=== PATIENT | female | born 1980 | race Caucasian/White ===

== ENCOUNTER 2023-06-23 08:23 | Outpatient (CLI) | payer OTHER, SELFPAY ==
--- NOTE | 2023-06-23 08:45 | CRLHL7_ITS ---
For Patients: As a result of the Century Cures Act, medical imaging exams and procedure reports are released immediately into your electronic medical record. You may view this report before your referring provider. If you have questions, please contact your health care provider. BILATERAL SCREENING MAMMOGRAM WITH COMPUTER-AIDED DETECTION AND TOMOSYNTHESIS TECHNIQUE: CC and MLO views were obtained. These mammographic images have been obtained using full-field digital technique. These mammographic images were interpreted with the benefit of computer-aided detection. Breast Tomosynthesis was used in this interpretation. COMPARISON FILM: Baseline. FINDINGS: There are scattered areas of fibroglandular density IMPRESSION: There is no radiographic evidence for malignancy. ASSESSMENT: BI-RADS Category 1: Negative RECOMMENDATION: Routine screening mammogram in 1 year. A lay language report of this examination will be provided to the patient. Peggy Rodriguez M.D. Diagnostic/Breast Radiologist [email or web address] JULIA/Dictated by: Peggy Rodriguez MD @ 06/24/2023 11:25:00 AM (Electronically Signed)
== END 2023-06-23 08:24 | disposition home or self-care (01) ==
LOC: MAMMO 08:24
PROVIDERS: Visit Provider Obstetrics & Gynecology
DX: Z12.31 Encounter for screening mammogram for malignant neoplasm of breast (principal)
CPT/HCPCS: 77063; 77067; 80061; 84443

== ENCOUNTER 2024-02-01 07:59 | Outpatient (CLI) | payer OTHER, SELFPAY ==
--- NOTE | 2024-02-01 08:15 | MR_ITS ---
[address] [address] Phone:?[phone] Fax:?[phone] Referring Physician Information: Luiz Fraga M.D. [id number] [facility] [address] Phone:?[phone] Fax:?[phone] Patient:Linda Estrada D.O.B:?1980 Sex:?Female Phone:?[phone] [facility] MRN:?[id number] Exam Date:?02/01/2024 EXAM: MRI of the LEFT SHOULDER WITHOUT CONTRAST CLINICAL HISTORY: Left shoulder pain. Evaluate for rotator cuff tear. COMPARISONS: Plain radiographs 01/21/2024. TECHNICAL: MRI sequences of the left shoulder: Axials: PD, T2 Coronals: PD, STIR, T2 Sagittals: PD, T2 SEDATION: None CONTRAST: None FINDINGS: Bones: No fracture or suspicious bone marrow signal abnormality. Coracoacromial arch: Acromion: No os acromiale. Type I-II acromion. Acromiohumeral space: The bony distance is unremarkable. Acromioclavicular joint: Mild degenerative changes. Coracoclavicular ligament: The coracoclavicular ligament is intact. Rotator cuff muscles/tendons: Supraspinatus: 4 x 4 mm concealed slitlike intrasubstance tear within the anterior portion of the supraspinatus tendon insertional footprint with 1 mm of retraction of torn tendon fibers from the cortical insertional surface best seen on sagittal series 8 image 6 and coronal series 6 images 8 and 9. No muscular atrophy. Infraspinatus: The infraspinatus tendon and muscle are intact. Teres minor: The teres minor tendon and muscle are intact. Subscapularis: The subscapularis tendon and muscle are intact. Labrum and glenohumeral joint: No evidence of labral tear although evaluation is suboptimal because of nonarthrogram technique. Physiologic amount of joint fluid. No discrete chondral defect or subchondral bone marrow edema/cystic change is seen. No convincing evidence of capsular edema or thickening although evaluation is suboptimal because of lack of joint distention. Proximal biceps tendon, long head and short heads: There is mild tendinopathy within the intra-articular portion of the long head of the biceps tendon. The short head is intact. Bursae: Subacromial/subdeltoid: Mild bursitis. Subcoracoid: No convincing subcoracoid bursal thickening/bursitis. IMPRESSION: 1. 4 x 4 mm concealed slitlike intrasubstance tear within the anterior portion of the supraspinatus tendon insertional footprint with 1 mm of retraction of torn tendon fibers from the cortical insertional surface. 2. No articular or bursal surfacing rotator cuff tendon tear. No rotator cuff muscular atrophy. 3. Mild tendinopathy within the intra-articular portion of the long head of the biceps tendon. 4. Mild subacromial/subdeltoid bursitis. 5. No evidence of labral tear on this nonarthrogram study. RCB Electronically signed on 02/01/2024 2:54:00 PM by Rom Ledesma M.D.
== END 2024-02-01 08:00 | disposition home or self-care (01) ==
LOC: MRI 08:00
PROVIDERS: Visit Provider Orthopaedic Surgery
DX: M25.512 Pain in left shoulder (principal); M75.102 Unspecified rotator cuff tear or rupture of left shoulder, not specified as traumatic; M75.52 Bursitis of left shoulder
CPT/HCPCS: 73221

== ENCOUNTER 2024-05-12 07:30 | Outpatient (RCR) | payer OTHER, SELFPAY | END 2024-07-28 14:10 | disposition home or self-care (01) | PROVIDERS: Visit Provider Orthopaedic Surgery | DX: S46.012D Strain of muscle(s) and tendon(s) of the rotator cuff of left shoulder, subsequent encounter (principal); M25.512 Pain in left shoulder; R53.1 Weakness; Z51.89 Encounter for other specified aftercare | CPT/HCPCS: 97035; 97110; 97140; 97161 ==

== ENCOUNTER 2024-12-06 13:41 | Outpatient (CLI) | payer OTHER, SELFPAY | END 2024-12-06 13:42 | disposition home or self-care (01) | LOC: NFLDREF 12-09 02:25 | PROVIDERS: PCP Nurse Practitioner Family; Visit Provider Nurse Practitioner Family | DX: Z00.00 Encounter for general adult medical examination without abnormal findings (principal); E66.812 Obesity, class 2; Z68.37 Body mass index [BMI] 37.0-37.9, adult; N89.8 Other specified noninflammatory disorders of vagina; Z13.6 Encounter for screening for cardiovascular disorders | CPT/HCPCS: 80061; 82947; 84443 ==

== ENCOUNTER 2025-02-23 09:34 | Outpatient (CLI) | payer OTHER, SELFPAY ==
[2025-02-23 15:21] LABS: Bacterial Vaginosis* Negative (Negative); Candida glab/krus NOT DETECTED (No Detected)
[2025-02-23 18:46] LABS: Chlamydia DNA Amplified* NOT DETECTED (No Detected); GC DNA Amplified* NOT DETECTED (No Detected)
== END 2025-02-23 09:35 | disposition home or self-care (01) ==
PROVIDERS: PCP Nurse Practitioner Family; Visit Provider Obstetrics & Gynecology
DX: R39.89 Other symptoms and signs involving the genitourinary system (principal); B37.31 Acute candidiasis of vulva and vagina
CPT/HCPCS: 81513; 87102; 87481; 87491; 87591; 87661

== ENCOUNTER 2025-05-28 13:37 | Outpatient (CLI) | payer OTHER, SELFPAY ==
--- NOTE | 2025-05-28 13:40 | CRLHL7_ITS ---
For Patients: As a result of the Century Cures Act, medical imaging exams and procedure reports are released immediately into your electronic medical record. You may view this report before your referring provider. If you have questions, please contact your health care provider. INDICATION: BILATERAL SCREENING MAMMOGRAM, ASYMPTOMATIC 44 Y/O FEMALE COMPARISON: 06/23/2023 TECHNIQUE: Digital mammogram in CC and MLO projections including computer-aided detection (CAD) and tomosynthesis. BREAST COMPOSITION: The breasts are almost entirely fatty. FINDINGS: No suspicious findings. ASSESSMENT: BI-RADS 1 Negative RECOMMENDATION: Annual screening mammogram. A lay language report of this examination will be provided to the patient. Dictated by: Brooke Nagel MD @ 05/29/2025 09:30:27 (Electronically Signed)
== END 2025-05-28 13:38 | disposition home or self-care (01) ==
LOC: MAMMO 13:38
PROVIDERS: PCP Nurse Practitioner Family; Visit Provider Nurse Practitioner Family
DX: Z12.31 Encounter for screening mammogram for malignant neoplasm of breast (principal)
CPT/HCPCS: 77063; 77067